=== PATIENT | female | born 1995 | race Caucasian/White ===

== ENCOUNTER 2021-02-28 17:38 | Emergency (ER) | payer BC ==
[~2021-02-28 17:38] MED LIST: ATARAX10 MG PO; FLONASE NASAL S16 GM; NEXPLANON68 MG ID; NUVARING VAG RING VG; ProAir HFA INH; SINGULAIR10 MG PO; ZYRTEC10 MG PO
[2021-02-28] MEDS ORDERED: CLARITIN 1010 MG/TAB PO (17:58)
[2021-02-28 18:49] LABS: BASO # 0.02 (0.02-0.10); EOS # 0.07 (0.04-0.40); EOS % 1.5 % (1.0-5.0); HEMATOCRIT 41.7 % (37.0-47.0); HEMOGLOBIN 14.4 g/dL (12.5-16.0); LYMPH# 1.25 (1.50-4.00); MEAN CELL VOLUME 87 fl (78-100); MEAN CORPUSCULAR HEMOGLOBIN 30 pg (27-31); MEAN CORPUSCULAR HGB CONC 35 g/dL (33-37); MONO # 0.38 (0.20-0.80); NEU # 2.98 (1.40-6.50); PLATELET COUNT 262 K/mm3 (130-400); RED BLOOD COUNT 4.81 M/mm3 (4.10-5.30); RED CELL DISTRIBUTION WIDTH 11.7 % (11.5-14.5); WHITE BLOOD COUNT 4.7 K/mm3 (4.8-10.8)
[2021-02-28 18:52] LABS: ALBUMIN 4.7 g/dL (3.5-5.0)
[2021-02-28 18:54] LABS: CALCIUM 9.7 mg/dL (8.3-10.5)
[2021-02-28 18:55] LABS: TOTAL PROTEIN 8.5 g/dL (6.4-8.3)
[2021-02-28 18:57] LABS: TOTAL BILIRUBIN 0.9 mg/dL (0.2-1.2)
[2021-02-28 19:16] LABS: URINE APPEARANCE CLEAR; URINE COLOR YELLOW; URINE GLUCOSE NEGATIVE (NEGATIVE); URINE PROTEIN(semi-quant) TRACE mg/dL (NEGATIVE)
[2021-02-28 19:17] LABS: URINE BILIRUBIN NEGATIVE (NEGATIVE); URINE BLOOD TRACE (NEGATIVE); URINE KETONE 1+ (NEGATIVE); URINE LEUKOCYTE ESTERASE NEGATIVE (NEGATIVE); URINE NITRATE NEGATIVE (NEGATIVE); URINE UROBILINOGEN NORMAL (NORMAL)
[2021-02-28] MEDS ORDERED: ZOFRAN ODT4 MG PO (19:22)
[2021-02-28] MEDS ORDERED: POTASSIUM CHLO20 ME4 PO (19:22)
[2021-02-28 19:30] VITALS: BP 101/65
== END 2021-02-28 19:32 | disposition home or self-care (01) ==
LOC: ED 17:38
PROVIDERS: Physician Assistant
DX: K52.9 Noninfective gastroenteritis and colitis, unspecified (principal); E87.6 Hypokalemia; Z20.822 Contact with and (suspected) exposure to COVID-19
CPT/HCPCS: J2405; J7030

== ENCOUNTER → 2023-05-21 | Outpatient (CLI) | payer OTHER ==
[~2023-05-21] MED LIST changes: +CLARITIN 1010 MG/TAB PO; +POTASSIUM CHLO20 ME4 PO; +ZOFRAN ODT4 MG PO
== END ==
LOC: LAB 14:08
DX: E55.9 Vitamin D deficiency, unspecified (principal)

== ENCOUNTER → 2024-08-19 | Outpatient (CLI) | payer OTHER ==
[2024-08-19 09:22] LABS: BASO # 0.02 K/mm3 (0.02-0.10); EOS # 0.08 K/mm3 (0.04-0.40); EOS % 1.9 % (1.0-5.0); HEMATOCRIT 41.3 % (37.0-47.0); HEMOGLOBIN 13.7 g/dL (12.5-16.0); LYMPH# 1.65 K/mm3 (1.50-4.00); MEAN CELL VOLUME 87 fl (78-100); MEAN CORPUSCULAR HEMOGLOBIN 29 pg (27-31); MEAN CORPUSCULAR HGB CONC 33 g/dL (33-37); MEAN PLATELET VOLUME 8.6 fl (7.4-10.4); MONO # 0.23 K/mm3 (0.20-0.80); NEU # 2.31 K/mm3 (1.40-6.50); PLATELET COUNT 291 K/mm3 (130-400); RED BLOOD COUNT 4.74 M/mm3 (4.10-5.30); RED CELL DISTRIBUTION WIDTH 11.9 % (11.5-14.5); WHITE BLOOD COUNT 4.3 K/mm3 (4.8-10.8)
[2024-08-19 09:30] LABS: ALBUMIN 4.6 g/dL (3.5-5.0)
[2024-08-19 09:31] LABS: CALCIUM 9.8 mg/dL (8.3-10.5)
[2024-08-19 09:33] LABS: TOTAL PROTEIN 8.9 g/dL (6.4-8.3)
[2024-08-19 09:35] LABS: TOTAL BILIRUBIN 0.7 mg/dL (0.2-1.2)
[2024-08-19 23:47] LABS: FOLLICLE STIMULATING HORMONE 2.4 mIU/mL (()); LUTENIZING HORMONE 3.3 mIU/mL (())
== END ==
LOC: LAB 09:05
PROVIDERS: Nurse Practitioner
DX: Z00.00 Encounter for general adult medical examination without abnormal findings (principal); Z13.220 Encounter for screening for lipoid disorders; M25.50 Pain in unspecified joint; R53.83 Other fatigue; R61 Generalized hyperhidrosis